=== PATIENT | female | born 1965 | race Caucasian/White ===

== ENCOUNTER → 2020-04-10 | Outpatient (CLI) | payer OTHER ==
--- NOTE | 2020-04-10 16:58 | RAD ---
EXAM: Lumbar spine, 3 views. HISTORY: Pain. COMPARISON: None. FINDINGS: 3 views of the lumbar spine are obtained. There is lumbar dextroscoliosis centered at L3. There is degenerative endplate remodeling and disc space narrowing primarily at L2-L3 and L3-L4. There is mild retrolisthesis at these levels. There is multilevel facet arthropathy. There is right greater than left hip osteoarthritis, partially included on the [id number]. IMPRESSION: 1. Multiple level degenerative change involving the lumbar spine, primarily at L2-L3 and L3-L4. 2. Lumbar scoliosis and multilevel listhesis. 3. Bilateral hip osteoarthritis. Electronically signed by: Terri Wilburn MD (04/10/2020 4:55 PM) [facility]
--- NOTE | 2020-04-10 17:02 | RAD ---
EXAMINATION: HAND RIGHT 2V, KNEE RIGHT 2V CLINICAL HISTORY: Reason: chronic right hand pain / Spl. Instructions: / History: TECHNIQUE: HAND RIGHT 2V, KNEE RIGHT 2V Number of different views (projections): 2 views right hand, 2 views right knee COMPARISON: None FINDINGS: RIGHT HAND: Moderate to severe degenerative changes first CMC joint. Joint spaces and alignment otherwise maintained. No acute fracture. No focal soft tissue swelling. RIGHT KNEE: Moderate to severe lateral compartment narrowing and moderate medial compartment narrowing with associated genu valgus. At least mild to moderate patellofemoral compartment narrowing. Tricompartmental small marginal osteophytes. No acute fracture. No joint effusion. 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 Tricompartmental degenerative changes right knee, advanced in the lateral compartment. Electronically signed by: Kevin Wetzel DO (04/10/2020 4:59 PM) [id number]
== END | disposition home or self-care (01) ==
LOC: DXRAD 13:17
PROVIDERS: ATTEND Family Medicine
DX: M18.11 Unilateral primary osteoarthritis of first carpometacarpal joint, right hand (principal); M17.11 Unilateral primary osteoarthritis, right knee; M47.816 Spondylosis without myelopathy or radiculopathy, lumbar region; M41.86 Other forms of scoliosis, lumbar region; M43.16 Spondylolisthesis, lumbar region; M16.0 Bilateral primary osteoarthritis of hip; M79.89 Other specified soft tissue disorders; G89.29 Other chronic pain
CPT/HCPCS: 72100; 73120; 73560